=== PATIENT | male | born 1990 | race Caucasian/White ===

== ENCOUNTER 2018-08-03 23:45 | Emergency (ER) | payer OTHER ==
[~2018-08-03] VITALS: Ht 172.7 cm; Wt 81.6 kg
[2018-08-04 00:54] LABS: BASOPHILS % (AUTO) 0.1 % (0.0-2.0); EOSINOPHILS % (AUTO) 0.6 % (0.0-6.0); HEMATOCRIT 49 % (39-51); HEMOGLOBIN 15.9 g/dL (13.5-17.5); LYMPHOCYTES # (AUTO) 1.2 /CMM (0.8-4.8); LYMPHOCYTES % (AUTO) 10.4 % (20.0-44.0); MEAN CORPUSCULAR HGB CONC 32 g/dl (31.0-36.0); MEAN CORPUSCULAR VOLUME 92 fL (80-96); MONOCYTES # (AUTO) 0.7 /CMM (0.1-1.30); MONOCYTES % (AUTO) 6.1 % (2.0-12.0); NEUTROPHILS # (AUTO) 9.7 /CMM (1.8-8.9); NEUTROPHILS % (AUTO) 82.8 % (43.0-81.0); PLATELET COUNT (AUTO) 156 /CMM (150-450); RDW COEFFICIENT OF VARIATION 14.9 (11.5-15.0); RED BLOOD CELL COUNT(AUTO) 5.33 MIL/uL (4.5-6.0); WHITE BLOOD COUNT (AUTO) 11.7 K/uL (4.3-11.0)
[2018-08-04] MEDS ORDERED: IV NS 0.9% 1,000 ML BAG IV ONE (01:00)
[2018-08-04 01:09] LABS: CREATINE KINASE, TOTAL 702 U/L (39-308)
[2018-08-04 01:10] LABS: ALBUMIN 3.3 g/dL (3.4-5.0); BILIRUBIN,DIRECT 0.1 mg/dL (0.0-0.2); BILIRUBIN,TOTAL 0.2 mg/dL (0.2-1.0); CALCIUM, SERUM 9.2 mg/dL (8.5-10.1); CREATININE 1.2 mg/dL (0.6-1.3); TOTAL PROTEIN, SERUM 6.6 g/dL (6.4-8.2)
[2018-08-04 01:12] LABS: POTASSIUM 1.8 mmol/L (3.5-5.1)
[2018-08-04] MEDS ORDERED: POTASSIUM CHLORIDE 10 MEQ/50 ML PREMIXED IVPB FOR PERIPHERAL LINE IV ONE (01:30)
[2018-08-04] MEDS ORDERED: Magnesium 1GM/D5W 100ML PREMIX 100 ML IV SCH (01:30)
[2018-08-04] MEDS ORDERED: Magnesium 1GM/D5W 100ML PREMIX 200 ML IV ONE (01:34)
[2018-08-04] MEDS ORDERED: POTASSIUM CL. PREMIX PERIPHER. 50 ML ONE ×4 (01:34→04:11)
[2018-08-04 01:36] LABS: MAGNESIUM 1.4 mg/dL (1.8-2.4)
[2018-08-04] MEDS ORDERED: IV NS 0.9% 1,000 ML IV ONE (01:37)
[2018-08-04 01:38] LABS: POTASSIUM 1.5 mmol/L (3.5-5.1)
--- NOTE | 2018-08-04 01:44 | NUR ---
CALLED [facility], SPOKE TO SHLOMO, WAITING FOR MD CALL BACK.
--- NOTE | 2018-08-04 02:02 | NUR ---
DR. BRUNA GRAY EPRP SPEAKING TO DR. HAWTHORNE REGARDING POC
--- NOTE | 2018-08-04 02:13 | NUR ---
ARAM BROTHER [phone]
[2018-08-04] MEDS ORDERED: IBUPROFEN 600 MG TABLET PO ONE ×2 (02:30→02:53)
[2018-08-04] MEDS ORDERED: CLONIDINE HCL 0.1 MG TABLET PO ONE (02:30)
--- NOTE | 2018-08-04 02:30 | NUR ---
PT CL K+ 1.5 ER AWARE, KCL 10 MEQ TOTAL 60MEQ, FIRST BAG STARTED. PT ON MONITOR
--- NOTE | 2018-08-04 02:32 | NUR ---
2ND BAG OF POTASSIUM STARTED AND MAG RUNNING ON SEPARATE LINE
--- NOTE | 2018-08-04 02:37 | NUR ---
[facility] TRANSFER TO [facility] ER REPORT [phone] DR. MCINTYRE CCTRN ETA [phone]
--- NOTE | 2018-08-04 03:40 | NUR ---
CALLED [facility], REPORT GIVEN TO ARI VACA , [facility] HERE TO TRANSFER PT, V/S STABLE, ON R/A WELL TOLERATED.
--- NOTE | 2018-08-04 03:45 | NUR ---
REPORT GIVEN TO [facility] NOLA FRANCO, CARE TAKEN OVER BY PRN.
[2018-08-04] MEDS ORDERED: IV NS 0.9% 500 ML IV ONE (04:00)
[2018-08-04 04:06] LABS: APPEARANCE,URINE CLEAR (CLEAR); BILIRUBIN,URINE NEGATIVE (NEGATIVE); BLOOD, URINE NEGATIVE Ery/uL (NEGATIVE); COLOR,URINE YELLOW (YELLOW); KETONES,URINE NEGATIVE (NEGATIVE); LEUKOCYTE ESTERASE ,URINE NEGATIVE (NEGATIVE); NITRITE, URINE NEGATIVE (NEGATIVE); PROTEIN,URINE NEGATIVE (NEGATIVE); UGLUCOSE NEGATIVE (NEGATIVE); UROBILINOGEN,URINE 0.2 EU/dL (0.2)
--- NOTE | 2018-08-04 04:08 | NUR ---
PT PICKED UP, KCL BAG 4 OF 6 RUNNING DURING TRANSPORT, CARE CONTINUED BY CCT NOLA FRANCO, LAST BAG OF MAG, COMPLETE. 2 BAGS TO BE GIVEN BY [facility] FOR A TOTAL OF 6BAGS. Addendum: 08/04/18 at 0453 by TAURUS URINALYSIS COLLECTED AND SENT TO LAB
[2018-08-04 04:28] VITALS: BP 125/75
== END 2018-08-04 04:31 | disposition short-term general hospital (02) ==
LOC: ER 23:48
DX: E87.6 Hypokalemia (principal); E83.42 Hypomagnesemia; M62.81 Muscle weakness (generalized); R00.0 Tachycardia, unspecified
CPT/HCPCS: 36415; 80048; 80076; 80305; 81001; 82550; 82553; 83735; 84132; 85025; 85652; 93005; 96365; 96366; 96368; 99291; A4606 ×2; A6402; J3475; J3480 ×4; J7030 ×2; J7040; Z7610 ×2; 81000-TC